=== PATIENT | male | born 1980 | race Caucasian/White ===

== ENCOUNTER → 2016-08-18 | Outpatient (CLI) | payer BC ==
[~2016-08-18] MED LIST: CYCL5TAB PO; LORA10CA2 PO; ONDA4TAB10 SL; OXYC-643 PO; PANT40TA PO; PRED10TA PO; PRLSR20 PO; PRLUDL5 PO
--- NOTE | 2016-08-18 14:30 | DIAGNOSTIC IMAGING REPORT ---
LEFT FOOT MIN 3 VIEWS ROUTINE CLINICAL HISTORY: PAIN IN L TOE M79.675, NAIL ABNORMALITY L60.9 COMPARISON: None. DISCUSSION: The bones and joint spaces appear intact. There is no evidence of fracture, dislocation or bony disease. There is no evidence for soft tissue swelling. IMPRESSION: Negative study. note is made of a small heel spur Electronically signed by: Elijah Pugh M.D. 08/18/2016 2:28 PM Dictated Date/Time: 08/18/2016 2:28 PM
== END | disposition home or self-care (01) ==
LOC: C.RAD 14:04
PROVIDERS: ATTEND Physician Assistant
DX: M79.675 Pain in left toe(s) (principal); L60.9 Nail disorder, unspecified; M77.32 Calcaneal spur, left foot

== ENCOUNTER 2016-10-08 10:43 | Emergency (ER) | payer BC ==
[~2016-10-08] VITALS: Ht 182.9 cm; Wt 121.4 kg
[~2016-10-08 10:43] MED LIST changes: -CYCL5TAB PO; -ONDA4TAB10 SL; -OXYC-643 PO; -PANT40TA PO; -PRED10TA PO; -PRLSR20 PO; -PRLUDL5 PO
[2016-10-08 10:50] VITALS: TEMP 36.5; Ht 182.9 cm; Wt 121.4 kg
[2016-10-08 11:16] VITALS: O2SAT 95
[2016-10-08] MEDS ORDERED: PRED10TA PO (11:20)
[2016-10-08] MEDS ORDERED: SODIUM CHLORIDE 0.9% 1000ML 1,000 ML IV STA (11:47)
[2016-10-08] MEDS ORDERED: METHYLPREDNISOLONE 125 MG VIAL IM STA (11:47)
[2016-10-08] MEDS ORDERED: ONDANSETRON INJ 2 MG/ML 2 ML VIAL IV STA (11:47)
[2016-10-08] MEDS ORDERED: RANITIDINE HCL 50 MG/100 ML D5W IV STA (11:47)
[2016-10-08] MEDS ORDERED: SODIUM CHLORIDE 0.9% 1000ML 1,000 ML IV ONE (11:47)
[2016-10-08] MEDS ORDERED: DiphenhydrAMINE HCL 50 MG/ML VIAL IV STA (11:47)
[2016-10-08] MEDS ORDERED: MoRPHine SULFATE 4 MG/ML 1 ML CARP\\VIAL IV STA (11:47)
[2016-10-08 12:06] LABS: HEMATOCRIT 51.3 % (42-52); MEAN CELL VOLUME 89.5 fL (80-100); MEAN CORPUSCULAR HEMOGLOBIN 33.2 pg (25-34); MEAN PLATELET VOLUME 11.5 fL (7.4-10.4); PLATELET COUNT 248 K/uL (130-400); RED BLOOD COUNT 5.73 M/uL (4.7-6.1); WHITE BLOOD COUNT 9.91 K/uL (4.8-10.8)
[2016-10-08 12:07] LABS: BUN/CREATININE RATIO 16.6 (10-20); CALCIUM 8.7 mg/dl (8.5-10.1); CREATININE 0.95 mg/dl (0.60-1.40); POTASSIUM 3.5 mmol/L (3.5-5.1)
--- NOTE | 2016-10-08 12:09 | DIAGNOSTIC IMAGING REPORT ---
CHEST ONE VIEW PORTABLE HISTORY: Atypical CHEST PAIN COMPARISON: Chest 06/25/2013. FINDINGS: The lungs are clear. Cardiac silhouette is normal in size. No pleural effusions. No pneumothorax. IMPRESSION: No acute process. Electronically signed by: Neymar Lara M.D. 10/08/2016 12:08 PM Dictated Date/Time: 10/08/2016 12:07 PM
[2016-10-08] MEDS ORDERED: METHYLPREDNISOLONE 125 MG VIAL IV STA (12:10)
[2016-10-08] MEDS ORDERED: NURSING VERBAL MED ORDER ONE (12:15)
--- NOTE | 2016-10-08 12:29 | EMERGENCY ROOM VISIT NOTE ---
History Report prepared by Ros: Anyi Oliveros Under the Supervision of: Dr. Edward Archer M.D. First contact with patient: 11:40 Chief Complaint: VOMITING Stated Complaint: HIVES, SEVERE VOMITING, RIB PAIN Nursing Triage Summary: pt reports started with hives over entire body on Wed. then started with NV on Sat. pt also reports rib pain RT vomitting pt currently on Rx for prednisone and claritin and zofran from PCP, did not take today DT vomitting History of Present Illness The patient is a 36 year old male who presents to the Emergency Room with complaints of intermittent vomiting since yesterday. The patient developed diffuse hives all over his body four days ago. He is complaining of itching that he states is especially bad on the bottoms of his feet. He had a similar episode of hives 2 years ago. He saw his PCP and they could not determine what was causing his rash. The hives resolved on their own. He has not had any issues since that time until this current episode. The patient is currently taking Claritin and prednisone for his hives as instructed by his PCP. He denies any new foods or exposures. He was recently taking Chantix and Wellbutrin , but states that he stopped both of those due to other side effects. He does report that he has been around a lot of pigeons and pigeon feces at work. Last night the patient developed nausea and vomiting. He states that his vomiting has been so severe that he might have broken a rib. He notes right rib pain that began after an episode of vomiting. He is also feeling very short of breath. The patient denies fevers, chills, and recent tick bites. He rates his current pain as a 10/10 in severity. Source of History: patient Onset: yesterday Position: abdomen Symptom Intensity: 10/10 Quality: other (vomiting) Timing: intermittent Associated Symptoms: + SOB, + nausea, + rash, No fevers, No chills Note: Pt notes right rib pain. Review of Systems See HPI for pertinent positives & negatives. A total of 10 systems reviewed and were otherwise negative. Past Medical & Surgical Medical Problems: (1) Hx of intravenous drug use in remission (2) Pilonidal cyst without mention of abscess Old medical records were reviewed. Nurse's notes were reviewed and I agree with. Family History Diabetes mellitus Social History Smoking Status: Current Every Day Smoker Alcohol Use: occasionally Drug Use: none Marital Status: single Housing Status: lives with family Occupation Status: employed Current/Historical Medications Scheduled Loratadine (Claritin), 10 MG PO BID Omeprazole (Prilosec), 20 MG PO DAILY Ondasetron Odt (Zofran Odt), 4 MG SL Q8 Prednisone (Prednisone), 10 MG PO DIRECTED Allergies Coded Allergies: Varenicline (Unverified Allergy, Unknown, SORE THROAT, 10/08/16) Uncoded Allergies: NONE (Allergy, Unknown, 09/04/04) Physical Exam Vital Signs Date Time Temp Pulse Resp B/P (MAP) Pulse Ox O2 Delivery O2 Flow Rate FiO2 10/08/16 14:50 89 19 118/86 97 10/08/16 12:37 83 16 139/79 98 Room Air 10/08/16 11:21 104 10/08/16 11:16 95 Room Air 10/08/16 10:50 36.5 90 20 129/88 97 Room Air Physical Exam General: Well developed well nourished non ill appearing young male, diffuse rash, complaining of pain along the right ribs, in no acute distress, no respiratory distress, breathing comfortably on room air. Normal speech HEENT: Normal cephalic atraumatic. Pupils are equal round and reactive to light. Extraocular movements are intact. Oropharynx is pink with moist mucous membranes. No swelling of the mouth lips or tongue. Speaking and swallowing without difficulty. Neck: Supple with a midline trachea. No meningeal signs or stiffness, no JVD or bruits. No Stridor. Chest: Clear to auscultation bilaterally. No wheezes or rhonchi. No increased work of breathing. Heart: regular rate and rhythm. Abdomen: Soft nontender, nondistended without rebound guarding or rigidity. Extremities: No cyanosis clubbing or edema. No calf tenderness or assymetry Spine/Back. Non tender to palpation. No CVA tenderness Skin: Diffuse rash that blanches Neurologic exam: Cranial nerves two through 12 are intact. Motor and sensation are intact and symmetrical throughout. Medical Decision & Procedures ER Provider Diagnostic Interpretation: Radiology results as stated below per my review and radiologist interpretation: CHEST ONE VIEW PORTABLE HISTORY: Atypical CHEST PAIN COMPARISON: Chest 06/25/2013. FINDINGS: The lungs are clear. Cardiac silhouette is normal in size. No pleural effusions. No pneumothorax. IMPRESSION: No acute process. Electronically signed by: Neymar Lara M.D. 10/08/2016 12:08 PM Dictated Date/Time: 10/08/2016 12:07 PM Laboratory Results 10/08/16 11:00 Red Blood Count 5.73, Mean Corpuscular Volume 89.5, Mean Corpuscular Hemoglobin 33.2, Mean Corpuscular Hemoglobin Concent 37.0, Mean Platelet Volume 11.5, Neutrophils (%) (Auto) 82.4, Lymphocytes (%) (Auto) 14.8, Monocytes (%) (Auto) 1.9, Eosinophils (%) (Auto) 0.1, Basophils (%) (Auto) 0.1, Neutrophils # (Auto) 8.16, Lymphocytes # (Auto) 1.47, Monocytes # (Auto) 0.19, Eosinophils # (Auto) 0.01, Basophils # (Auto) 0.01 10/08/16 11:00 Test 10/08/16 11:00 White Blood Count 9.91 K/uL (4.8-10.8) Red Blood Count 5.73 M/uL (4.7-6.1) Hemoglobin 19.0 g/dL (14.0-18.0) Hematocrit 51.3 % (42-52) Mean Corpuscular Volume 89.5 fL (80-100) Mean Corpuscular Hemoglobin 33.2 pg (25-34) Mean Corpuscular Hemoglobin Concent 37.0 g/dl (32-36) Platelet Count 248 K/uL (130-400) Mean Platelet Volume 11.5 fL (7.4-10.4) Neutrophils (%) (Auto) 82.4 % Lymphocytes (%) (Auto) 14.8 % Monocytes (%) (Auto) 1.9 % Eosinophils (%) (Auto) 0.1 % Basophils (%) (Auto) 0.1 % Neutrophils # (Auto) 8.16 K/uL (1.4-6.5) Lymphocytes # (Auto) 1.47 K/uL (1.2-3.4) Monocytes # (Auto) 0.19 K/uL (0.11-0.59) Eosinophils # (Auto) 0.01 K/uL (0-0.5) Basophils # (Auto) 0.01 K/uL (0-0.2) RDW Standard Deviation 40.8 fL (36.4-46.3) RDW Coefficient of Variation 12.4 % (11.5-14.5) Immature Granulocyte % (Auto) 0.7 % Immature Granulocyte # (Auto) 0.07 K/uL (0.00-0.02) Anion Gap 8.0 mmol/L (3-11) Est Creatinine Clear Calc Drug Dose 147.4 ml/min Estimated GFR () 120.6 Estimated GFR (Non- 104.0 BUN/Creatinine Ratio 16.6 (10-20) Calcium Level 8.7 mg/dl (8.5-10.1) Total Bilirubin 2.1 mg/dl (0.2-1) Direct Bilirubin 0.9 mg/dl (0-0.2) Aspartate Amino Transf (AST/SGOT) 18 U/L (15-37) Alanine Aminotransferase (ALT/SGPT) 34 U/L (12-78) Alkaline Phosphatase 43 U/L (45-117) Total Protein 7.0 gm/dl (6.4-8.2) Albumin 3.1 gm/dl (3.4-5.0) Lipase 37 U/L (73-393) Lyme Disease IgG Antibody NEG (NEG) Lyme Disease IgM Antibody NEG (NEG) Laboratory studies as stated above per my review. Medications Administered Medications (Trade) Dose Ordered Sig/Kandace Route Start Time Stop Time Status Last Admin Dose Admin Ondansetron HCl (Zofran Inj) 4 mg NOW STAT IV 10/08/16 11:47 10/08/16 11:51 DC 10/08/16 11:55 4 MG Morphine Sulfate (MoRPHine SULFATE INJ) 4 mg NOW STAT IV 10/08/16 11:47 10/08/16 11:51 DC 10/08/16 11:56 4 MG Sodium Chloride 1,000 ml @ 999 mls/hr Q1H1M STAT IV 10/08/16 11:47 10/08/16 12:47 DC 10/08/16 11:55 999 MLS/HR Sodium Chloride 1,000 ml @ 150 mls/hr Q6H40M ONCE IV 10/08/16 11:47 10/08/16 18:26 10/08/16 13:01 150 MLS/HR Ranitidine HCl (zANTac IV) 50 mg NOW STAT IV 10/08/16 11:47 10/08/16 11:51 DC 10/08/16 11:59 50 MG Diphenhydramine HCl (Benadryl Inj) 25 mg NOW STAT IV 10/08/16 11:47 10/08/16 11:51 DC 10/08/16 11:58 25 MG ED Course 1140: Past medical records reviewed. The patient was evaluated in room A3, and a complete history and physical examination were performed. 1147: Benadryl 25 mg IV, Zantac 50 mg IV, NSS 1000 ml @ 150 mls/hr IV, NSS 1000 ml @ 999 mls/hr IV, Morphine sulfate 4 mg IV, Zofran 4 mg IV 1210: Solu-Medrol 125 mg IV 1417: I reassessed the patient at this time. He is feeling better and resting comfortably. He has had significant improvement of his symptoms and his rash is almost completely gone. I discussed the results and treatment plan with the patient. I answered all pertaining questions that he had. He expressed understanding and verbalized agreement. The patient will be discharged home. Medical Decision Differential diagnoses includes hives, allergic reaction, urticaria, viral illness, pneumothorax, rib fracture. This patient comes in as described above. He was placed in room A3. He is here for treatment and evaluation of urticarial type rash. He's also had vomiting and has left rib pain from vomiting. He has pain with breathing but no shortness of breath. he is non-hypoxemic. he has no evidence of mucous membrane involvement or airway compromise. this been going on for several days. I did review his old records and he had a similar episode that of persistent hives a couple years ago but has been okay in between. IV access established hydrated with IV normal saline and received almost 2 L normal saline during his visit. he also received Zofran 4 mg IV morphine 4 mg IV for pain and nausea management which helped greatly in regards to his hives/urticaria. he received IV solumedrol 125 mg, Benadryl 25 mg IV, and Zantac 50 mg IV. this worked well and he felt significant better and the hives have significantly faded. He does feel up to go home. He should continue uses prednisone. He should continue to use antihistamine such as Claritin or Benadryl . He was given a prescription for Zofran if needed for nausea. He can use [id number] medications and needed for pain but do not exceed the [id number] recommended dosages. He should return if: Worsening of symptoms, shortness of breath, fever or chills, any new problems or concerns. His urticaria at this point is idiopathic and may be related to viral illness he may need further workup as an outpatient. He should follow his regular doctor next couple days for recheck Medication Reconcilliation Current Medication List: was personally reviewed by me Blood Pressure Screening Patient's blood pressure: Normal blood pressure Impression Primary Impression: Urticaria Additional Impression: Rib pain on right side Scribe Attestation The scribe's documentation has been prepared under my direction and personally reviewed by me in its entirety. I confirm that the note above accurately reflects all work, treatment, procedures, and medical decision making performed by me. Departure Information Dispostion Home / Self-Care Prescriptions Ondasetron Odt (ZOFRAN ODT) 4 Mg Tab 4 MG SL Q8 for Nausea, #14 TAB Prov: Edward Archer M.D. 10/08/16 Referrals Mansi Elliott PA-C (PCP) Forms HOME CARE DOCUMENTATION FORM, IMPORTANT VISIT INFORMATION Patient Instructions My [facility] Additional Instructions Rest Drink plenty of fluids. Use Zofran 4 mg under the tongue every 8 hours if needed for nausea or vomiting Continue to use your prednisone and Claritin or Benadryl Return if: Worsening of symptoms, shortness of breath, increasing pain, fever chills, any new problems or concerns. For pain, may use either small dose of ibuprofen and or acetaminophen/Tylenol but do not exceed the [id number] recommended dosages. Problem Qualifiers
[2016-10-08 12:32] LABS: LYME DISEASE AB IGG NEG (NEG); LYME DISEASE AB IGM NEG (NEG)
[2016-10-08 13:06] LABS: BASO % 0.1 %; BASO ABS # 0.01 K/uL (0-0.2); COMPLETE YES; EOS % 0.1 %; IG% 0.7 %; LYMPH % 14.8 %; LYMPH ABS # 1.47 K/uL (1.2-3.4); MONO % 1.9 %; NEUT % 82.4 %
[2016-10-08] MEDS ORDERED: ONDA4TAB10 SL (14:24)
[2016-10-08 14:50] VITALS: BP 118/86; PULSE 89; O2SAT 97
[2016-10-09] MEDS ORDERED: PRLSR20 PO (00:40)
== END 2016-10-08 14:50 | disposition home or self-care (01) ==
LOC: C.EDB 10:44 → C.EDA 14:50
DX: R11.10 Vomiting, unspecified (principal); L50.9 Urticaria, unspecified; R07.81 Pleurodynia; F17.210 Nicotine dependence, cigarettes, uncomplicated

== ENCOUNTER 2016-10-09 21:48 | Emergency (ER) | payer BC ==
[~2016-10-09] VITALS: Ht 182.9 cm; Wt 118.2 kg
[~2016-10-09 21:48] MED LIST changes: +ONDA4TAB10 SL; +PRED10TA PO; +PRLSR20 PO
[2016-10-09 21:51] VITALS: TEMP 36.8; Ht 182.9 cm; Wt 118.2 kg
[2016-10-09] MEDS ORDERED: ONDANSETRON INJ 2 MG/ML 2 ML VIAL IV STA (22:12)
[2016-10-09] MEDS ORDERED: METHYLPREDNISOLONE 125 MG VIAL IV STA (22:12)
[2016-10-09] MEDS ORDERED: SODIUM CHLORIDE 0.9% 1000ML 1,000 ML IV ONE (22:15)
[2016-10-09] MEDS ORDERED: ALBUT/IPRATROP 3MG/0.5MG NEB 3 ML VIAL INH ONE (22:15)
[2016-10-09 22:46] LABS: BASO % 0.1 %; BASO ABS # 0.01 K/uL (0-0.2); COMPLETE YES; EOS % 0.1 %; HEMATOCRIT 43.4 % (42-52); IG% 0.3 %; LYMPH % 14.3 %; LYMPH ABS # 2.22 K/uL (1.2-3.4); MEAN CELL VOLUME 90.2 fL (80-100); MEAN CORPUSCULAR HEMOGLOBIN 32.8 pg (25-34); MEAN CORPUSCULAR HGB CONC 36.4 g/dl (32-36); MEAN PLATELET VOLUME 10.5 fL (7.4-10.4); MONO % 3.1 %; NEUT % 82.1 %; PLATELET COUNT 259 K/uL (130-400); RED BLOOD COUNT 4.81 M/uL (4.7-6.1); WHITE BLOOD COUNT 15.57 K/uL (4.8-10.8)
[2016-10-09 22:54] LABS: ALB/GLOB RATIO 0.8 (0.9-2); BUN/CREATININE RATIO 16.4 (10-20); CALCIUM 8.8 mg/dl (8.5-10.1); CREATININE 0.73 mg/dl (0.60-1.40); POTASSIUM 3.2 mmol/L (3.5-5.1)
[2016-10-09 22:56] LABS: POINT OF CARE TROPONIN I < 0.030 ng/ml (0-0.045)
[2016-10-09] MEDS ORDERED: OPTIRAY 320 IV PRN (23:00)
[2016-10-09 23:55] LABS: LYME DISEASE AB IGG NEG (NEG); LYME DISEASE AB IGM NEG (NEG)
[2016-10-10] MEDS ORDERED: PRLUDL5 PO (00:20)
[2016-10-10] MEDS ORDERED: PANT40TA PO (00:20)
[2016-10-10 00:49] VITALS: BP 130/85; PULSE 67; O2SAT 98
--- NOTE | 2016-10-10 03:08 | EMERGENCY ROOM VISIT NOTE ---
History First contact with patient: 22:00 Chief Complaint: OTHER COMPLAINT Stated Complaint: RASH, TIGHTNESS IN THROAT, SOB History of Present Illness The patient is a 36 year old male who presents to the Emergency Room for evaluation of multiple complaints. The patient was seen yesterday at the facility for allergic reaction and rash. He was provided prednisone, which she states did help the itching and redness of his body. The patient states that he took a dose this morning, and shortly afterwards began having pain and tightness in his chest. He describes it like a burning sensation. He has had coughing and wheezing worsening throughout the day, and he states this seems to worsen the tightness in his chest. The patient has not had fever or chills. No new medications other than the prednisone. He recently discontinued his antidepressants as he felt this was likely causing his rash that initially brought him in. The patient does have some anxiety at baseline. He rates his discomfort a 5/10. Review of Systems More than 10 systems were reviewed and otherwise negative with the exception of history of present illness. Past Medical/Surgical History Medical Problems: (1) Hx of intravenous drug use in remission (2) Pilonidal cyst without mention of abscess Family History Diabetes mellitus Social History Smoking Status: Current Every Day Smoker Alcohol Use: occasionally Drug Use: none Marital Status: single Housing Status: lives with family Occupation Status: employed Current/Historical Medications Scheduled Loratadine (Claritin), 10 MG PO BID Ondasetron Odt (Zofran Odt), 4 MG SL Q8 Pantoprazole (Protonix), 40 MG PO DAILY Prednisolone (Prelone 15MG/5ML), 15 ML PO DAILY Prednisone (Prednisone), 10 MG PO DIRECTED Scheduled PRN Omeprazole (Prilosec), 20 MG PO DAILY PRN for Dyspepsia Physical Exam Vital Signs Date Time Temp Pulse Resp B/P (MAP) Pulse Ox O2 Delivery O2 Flow Rate FiO2 10/10/16 00:49 67 20 130/85 98 10/09/16 23:23 84 18 129/77 98 Room Air 10/09/16 22:52 82 20 123/80 98 Room Air 10/09/16 21:51 36.8 88 16 139/83 98 Room Air Pain Rating (0-10): 0 Physical Exam VITALS: Vitals are noted on the nurse's note and reviewed by myself. Vital signs stable. GENERAL: Well-developed, well-nourished, white male, who is mildly anxious but nontoxic MOUTH: Mucous membranes moist. Tonsils are not enlarged. Pharynx without erythema, blood, or exudate. Uvula midline. Airway patent. NECK: Supple without nuchal rigidity. No lymphadenopathy. No thyromegaly. Cervical spine is nontender. HEART: Regular rate and rhythm without murmurs gallops or rubs. LUNGS: Overall clear with scant left-sided wheezing ABDOMEN: Positive normal bowel sounds x 4. Soft, nontender, without masses or organomegaly. No guarding or rebound tenderness. MUSCULOSKELETAL: No muscle atrophy, erythema, or edema noted. Full range of motion without joint tenderness in all extremities. Negative Homans sign bilateral NEURO: Patient was alert and oriented to person place and time. CN II through XII grossly intact. SKIN: The skin was with faint urticarial rash best appreciated on the lower extremities Medical Decision & Procedures ER Provider Diagnostic Interpretation: Preliminary Findings Only See Final Report For Complete Findings CTA CHEST: No pulmonary embolus identified. Tiny nonspecific 4 mm nodule in the right middle lobe. According to Fleischner society recommendations, if patient is low risk, no further follow-up is necessary. If patient is high risk, follow-up CT could be performed at 12 months. Minimal focal densities in the anterior upper lobes may represent focal atelectasis. Possible small amount of density in the gallbladder may represent stones and/or sludge. No CT evidence of acute cholecystitis. Laboratory Results 10/09/16 22:15 Red Blood Count 4.81, Mean Corpuscular Volume 90.2, Mean Corpuscular Hemoglobin 32.8, Mean Corpuscular Hemoglobin Concent 36.4, Mean Platelet Volume 10.5, Neutrophils (%) (Auto) 82.1, Lymphocytes (%) (Auto) 14.3, Monocytes (%) (Auto) 3.1, Eosinophils (%) (Auto) 0.1, Basophils (%) (Auto) 0.1, Neutrophils # (Auto) 12.81, Lymphocytes # (Auto) 2.22, Monocytes # (Auto) 0.48, Eosinophils # (Auto) 0.01, Basophils # (Auto) 0.01 10/09/16 22:15 Test 10/09/16 22:15 10/09/16 22:37 White Blood Count 15.57 K/uL (4.8-10.8) Red Blood Count 4.81 M/uL (4.7-6.1) Hemoglobin 15.8 g/dL (14.0-18.0) Hematocrit 43.4 % (42-52) Mean Corpuscular Volume 90.2 fL (80-100) Mean Corpuscular Hemoglobin 32.8 pg (25-34) Mean Corpuscular Hemoglobin Concent 36.4 g/dl (32-36) Platelet Count 259 K/uL (130-400) Mean Platelet Volume 10.5 fL (7.4-10.4) Neutrophils (%) (Auto) 82.1 % Lymphocytes (%) (Auto) 14.3 % Monocytes (%) (Auto) 3.1 % Eosinophils (%) (Auto) 0.1 % Basophils (%) (Auto) 0.1 % Neutrophils # (Auto) 12.81 K/uL (1.4-6.5) Lymphocytes # (Auto) 2.22 K/uL (1.2-3.4) Monocytes # (Auto) 0.48 K/uL (0.11-0.59) Eosinophils # (Auto) 0.01 K/uL (0-0.5) Basophils # (Auto) 0.01 K/uL (0-0.2) RDW Standard Deviation 40.8 fL (36.4-46.3) RDW Coefficient of Variation 12.3 % (11.5-14.5) Immature Granulocyte % (Auto) 0.3 % Immature Granulocyte # (Auto) 0.04 K/uL (0.00-0.02) Anion Gap 5.0 mmol/L (3-11) Est Creatinine Clear Calc Drug Dose 189.3 ml/min Estimated GFR () 140.3 Estimated GFR (Non- 121.0 BUN/Creatinine Ratio 16.4 (10-20) Calcium Level 8.8 mg/dl (8.5-10.1) Total Bilirubin 0.4 mg/dl (0.2-1) Aspartate Amino Transf (AST/SGOT) 10 U/L (15-37) Alanine Aminotransferase (ALT/SGPT) 25 U/L (12-78) Alkaline Phosphatase 38 U/L (45-117) Total Protein 6.7 gm/dl (6.4-8.2) Albumin 2.9 gm/dl (3.4-5.0) Globulin 3.8 gm/dl (2.5-4.0) Albumin/Globulin Ratio 0.8 (0.9-2) Lyme Disease IgG Antibody NEG (NEG) Lyme Disease IgM Antibody NEG (NEG) Bedside D-Dimer > 450 ng/mlFEU (0-450) Bedside Troponin I < 0.030 ng/ml (0-0.045) Medications Administered Medications (Trade) Dose Ordered Sig/Kandace Route Start Time Stop Time Status Last Admin Dose Admin Sodium Chloride 1,000 ml @ 999 mls/hr Q1H1M ONCE IV 10/09/16 22:15 10/09/16 23:15 DC 10/09/16 22:30 999 MLS/HR Methylprednisolone Sodium Succinate (Solu-Medrol IV) 125 mg NOW STAT IV 10/09/16 22:12 10/09/16 22:14 DC 10/09/16 22:30 125 MG Ondansetron HCl (Zofran Inj) 4 mg NOW STAT IV 10/09/16 22:12 10/09/16 22:14 DC 10/09/16 22:30 4 MG Albuterol/ Ipratropium (Duoneb) 3 ml NOW ONCE INH 10/09/16 22:15 10/09/16 22:16 DC 10/09/16 22:30 3 ML ECG Change: Normal sinus rhythm with sinus arrhythmia @72 bpm Normal ECG No previous ECGs available ED Course Physical exam and history were performed. Nursing notes, EMR, and Medication List were personally reviewed. Patient appears to have chest discomfort after taking prednisone earlier today. On exam he does not appear toxic but does have some very scant wheezing in the left side lung guadalupe. IV access was established and labs were obtained. The patient was hydrated with normal saline. I did elect to give him IV Solu- Medrol for his symptoms as well as a DuoNeb treatment. Chest x-ray was performed. X-ray was normal sinus with sinus arrhythmia at 72 bpm without ischemia. The patient was placed on a clinical data abstractor. The patient's blood work is as above and was reviewed. He does have a white blood cell count of 15,000, however this is likely due to his Solu-Medrol in the ER yesterday as well as taking prednisone at home. He does not have a significant anemia or gross electrolyte imbalance. His troponin 1 is negative. D-dimer was elevated and CT scan was ordered. The CT scan does not show evidence of acute pulmonary embolism or other acute intrathoracic process. He does have an incidental pulmonary nodule, and is a smoker. The patient will be referred to his PCP regarding this. His Lyme screen is negative. The patient was reevaluated multiple times with her symptoms his stay. He had significant improvement of his breathing as well as his itching after the above interventions. His chest discomfort also improved. The patient symptoms are likely related to a medication as or possibly stress/anxiety. I discussed the case with my attending, and overall we feel the patient is stable for discharge home provided he has close follow-up by his PCP. The patient was thoroughly invited back to the ER with any new, worsening, or concerning symptoms. I will attempt liquid Prelone for the patient for his symptoms, as perhaps this will lessen the esophagitis. We will also provide him a course of Protonix. The patient was pleased with this and rated his discomfort a 2/10 at the time of departure. The chart was completed utilizing [employer] Speech Voice Recognition Software. Grammatical errors, random word insertions, pronoun errors, and incomplete sentences are an occasional consequence of this system due to software limitations, ambient noise, and hardware issues. Any formal questions or concerns about the content, text, or information contained within the body of this dictation should be directly addressed to the provider for clarification. . Medical Decision Differential diagnosis includes, but is not limited to: Myocardial infarction, dysrhythmia, pericarditis, pneumothorax, aortic aneurysm/dissection, DVT/PE, anxiety, GERD, PUD, electrolyte imbalance, thyroid disorder, pneumonia, bronchitis, pancreatitis, and others Impression Primary Impression: Cough Additional Impressions: Allergic reaction Incidental pulmonary nodule Departure Information Dispostion Home / Self-Care Condition GOOD Prescriptions Prednisolone (PRELONE 15MG/5ML) 15 Mg/5 Ml Syrp 15 ML PO DAILY for 3 Days, #45 ML Prov: Vineet Carrizales PA-C 10/10/16 Pantoprazole (Protonix) 40 Mg Tab 40 MG PO DAILY for 14 Days, #14 TAB Prov: Vineet Carrizales PA-C 10/10/16 Forms HOME CARE DOCUMENTATION FORM, Work Instructions, Additional Instructions: Patient was seen today in the emergency department for medical care. Return to work on 10/12/2016. Please excuse. IMPORTANT VISIT INFORMATION Patient Instructions My [facility] Additional Instructions You were seen and evaluated today on an emergency basis only. This is not a substitute for, or an effort to provide, complete comprehensive medical care. It is not possible to recognize and treat all injuries or illnesses in a single emergency department visit. For this reason it is recommended that you followup with your primary care physician this week for ongoing care and evaluation. Take Protonix 40 mg daily for the next 2 weeks. Take Prelone 15 ML's daily for the next 3 days. You have a 4 mm nodule in the right middle lobe on CT scan of your chest. This is nonspecific and the recommendation is that you have a follow-up CT in 12 months. This can be ordered by your primary care physician. You are welcome to return to the emergency department anytime with new, worsening, or concerning symptoms. Work Instructions Additional Work Instructions: Patient was seen today in the emergency department for medical care. Return to work on 10/12/2016. Please excuse. Problem Qualifiers
--- NOTE | 2016-10-10 06:43 | DIAGNOSTIC IMAGING REPORT ---
CT ANGIOGRAM OF THE CHEST CLINICAL HISTORY: Cough, shortness of breath, elevated d-dimer. COMPARISON STUDY: Chest x-ray dated 10/08/2016 TECHNIQUE: Following the IV administration of 73 mL of Optiray-320, CT angiogram of the thorax was performed from the thoracic inlet to the lung bases utilizing the pulmonary embolus protocol. Images are reviewed in the axial, sagittal, and coronal planes. IV contrast was administered without complication. MIP imaging was performed. A dose lowering technique was utilized adhering to the principles of ALARA. CT DOSE: 629.72 mGy.cm FINDINGS: No pathologically enlarged axillary mediastinal or hilar lymph nodes were visualized. There was no evidence of thoracic aortic dilatation. There were no pulmonary artery filling defects to indicate acute pulmonary embolism. No pleural effusions are visualized. There is a 7 mm pleural-based groundglass opacity within the left upper lobe, as visualized in image #187/278. There is a wispy groundglass opacity within the left lower lobe measuring 18 mm as visualized in image #1 6/278. There is a 4 mm right middle lobe pulmonary nodule as visualized in image #132/278.. There is an 8 mm mixed groundglass and solid left upper lobe pulmonary nodule is visualized in image #202/278. IMPRESSION: 1. Somewhat suboptimal pulmonary artery opacification, but no pulmonary emboli identified 2. No evidence of pathologic adenopathy 3. 4 mm right middle lobe pulmonary nodule. Subtle nonspecific groundglass opacities within the left lung, possibly atelectatic. Please refer to below summary of Fleischner criteria recommendations for follow-up of incidental CT nodules (Beba Cedeno, Guidelines for management of small pulmonary nodules detected on CT scans: A statement from the Fleischner Society, Radiology 237: [phone].) SOLID NODULES Solitary nodule size: <6 mm * low risk patients: no follow-up needed * high risk patients: optional CT at 12 months Solitary nodule size: 6-8 mm * low risk patients: follow-up at 6-12 months, then consider further follow-up at 18-24 months * high risk patients: initial follow-up CT at 6-12 months and then at 18-24 months if no change Solitary nodule size: >8 mm * either low or high risk patients - consider follow-up CT at 3 months, and/or CT-PET, and/or biopsy Multiple nodules size: <6 mm * low risk patients: no routine follow-up * high risk patients: optional CT at 12 months Multiple nodules size: 6-8 mm * low risk patients: follow-up at 3-6 months, then consider further follow-up at 18-24 months * high risk patients: follow-up at 3-6 months, then at 18-24 months if no change Multiple nodules size: >8 mm * low risk patients: follow-up at 3-6 months, then consider further follow-up at 18-24 months * high risk patients: follow-up at 3-6 months, then at 18-24 months if no change Note: newly detected indeterminate nodule in persons 35 years of age or older. * low risk patients: minimal or absent history of smoking and/or other known risk factors * high risk patients: history of smoking or of other known risk factors (e.g. first degree relative with lung cancer, or exposure to asbestos, radon, uranium) * if a nodule up to 8 mm is partly solid or is ground glass further follow-up is required after 24 months to exclude possible slow growing adenocarcinoma (NELLA) SUBSOLID NODULES Solitary pure ground-glass nodule * nodule size <6 mm - no CT follow-up required * nodule size >=6 mm - follow-up CT at 6-12 months, then every 2 years until 5 years Solitary part-solid nodule * nodule size <6 mm - no CT follow-up required * nodule size >=6 mm - follow-up CT at 3-6 months. If unchanged, and solid component remains <6 mm, then annual follow-up for 5 years Multiple subsolid nodules * nodule size <6 mm - follow-up CT at 3-6 months, consider further follow-up at 2 and 4 years if stable * nodule size >=6 mm - follow-up CT at 3-6 months, subsequent management based on the most suspicious nodule(s) Electronically signed by: Elvin Hartman M.D. 10/10/2016 6:42 AM Dictated Date/Time: 10/10/2016 6:37 AM
--- NOTE | 2016-10-10 07:23 | DIAGNOSTIC IMAGING REPORT ---
CHEST 2 VIEWS ROUTINE HISTORY: Cough. Wheezing. SOB COMPARISON: Chest 10/08/2016. FINDINGS: The lungs are clear. Cardiac silhouette is normal in size. No pleural effusions. No pneumothorax. IMPRESSION: No acute process. Electronically signed by: Neymar Lara M.D. 10/10/2016 7:21 AM Dictated Date/Time: 10/10/2016 7:21 AM
== END 2016-10-10 00:51 | disposition home or self-care (01) ==
LOC: C.EDB 21:49
DX: T78.40XA Allergy, unspecified, initial encounter (principal); X58.XXXA Exposure to other specified factors, initial encounter; R91.1 Solitary pulmonary nodule; R05 Cough; F17.200 Nicotine dependence, unspecified, uncomplicated; Z79.899 Other long term (current) drug therapy; Z83.3 Family history of diabetes mellitus

== ENCOUNTER 2016-10-11 06:06 | Observation (INO) | payer BC ==
[2016-10-11] VITALS (7 sets, daily range): BP systolic 126–131; BP diastolic 71–81; PULSE 68–72; TEMP 36.7–36.8; O2SAT 91–99; Ht 182.9 cm; Wt 121.5 kg
[~2016-10-11] VITALS: Ht 182.9 cm; Wt 121.5 kg
[~2016-10-11 06:06] MED LIST changes: +PANT40TA PO; +PRLUDL5 PO
[2016-10-11] MEDS ORDERED: ONDANSETRON INJ 2 MG/ML 2 ML VIAL IV STA (06:26)
[2016-10-11] MEDS ORDERED: SODIUM CHLORIDE 0.9% 1000ML 1,000 ML IV ONE (06:30)
[2016-10-11] MEDS ORDERED: GI COCKTAIL PO ONE (06:30)
[2016-10-11] MEDS ORDERED: LIDOCAINE HCL 2% VISC SOLN 20 ML UDC ONE (06:34)
[2016-10-11] MEDS ORDERED: ALUMINUM/MAGNESIUM SUSP 30 ML UDC ONE (06:34)
[2016-10-11] MEDS ORDERED: RANITIDINE HCL 50 MG/100 ML D5W IV STA (06:48)
[2016-10-11 06:54] LABS: BASO % 0.1 %; BASO ABS # 0.01 K/uL (0-0.2); COMPLETE YES; EOS % 0.1 %; HEMATOCRIT 42.4 % (42-52); IG% 0.7 %; LYMPH % 22.9 %; MEAN CELL VOLUME 90.4 fL (80-100); MEAN CORPUSCULAR HEMOGLOBIN 31.8 pg (25-34); MEAN CORPUSCULAR HGB CONC 35.1 g/dl (32-36); MEAN PLATELET VOLUME 9.8 fL (7.4-10.4); MONO % 8.1 %; NEUT % 68.1 %; PLATELET COUNT 274 K/uL (130-400); RED BLOOD COUNT 4.69 M/uL (4.7-6.1); WHITE BLOOD COUNT 14.39 K/uL (4.8-10.8)
[2016-10-11] MEDS ORDERED: PANTOprazole INJ 40 MG in SYRINGE 0 ML IV ONE (07:00)
--- NOTE | 2016-10-11 07:09 | EMERGENCY ROOM VISIT NOTE ---
History First contact with patient: 06:17 Chief Complaint: NAUSEA Stated Complaint: NAUSEA,WEAK,CAN'T SWALLOW Nursing Triage Summary: pt in B10 with family member at bedside. pt states "I've been tryin to throw up since 2:30am. I just can't get nothin up. It's like I can't even describe the cramps i'm having. I can't swallow." pt c/o abd cramping and nausea, states "I can't throw up." pt leaning over bed with bucket from home, spitting. pt alert and oriented x4. breathing WNL. History of Present Illness The patient is a 36 year old male who presents to the Emergency Room with complaints of epigastric abdominal pain and nausea worsening over the past 4 hours. The patient has been seen 3 times in the past 4 days in the emergency department. He was initially seen for a rash and started on prednisone. He felt the rash was from his antidepressant medications, which she has discontinued. The patient returned one day later with chest pain and epigastric abdominal pain where EKG and troponin were negative. CT scan for PE was also negative. The patient was transitioned to liquid prednisone at that time, out of concern for possible esophagitis secondary to the steroid use. The patient states that he felt well yesterday morning and throughout the day. Around 2:30 AM he started having abdominal cramping and discomfort. He feels the need to vomit, but states that he has been dry heaving. He does not have lower abdominal pain. No fevers or chills. He rates his discomfort a 10/10. It does not radiate. Review of Systems More than 10 systems were reviewed and otherwise negative with the exception of history of present illness. Past Medical/Surgical History Medical Problems: (1) Hx of intravenous drug use in remission (2) Pilonidal cyst without mention of abscess Family History Diabetes mellitus Social History Smoking Status: Current Every Day Smoker Alcohol Use: occasionally Drug Use: none Marital Status: single Housing Status: lives with family Occupation Status: employed Current/Historical Medications Scheduled Ondasetron Odt (Zofran Odt), 4 MG SL Q8 Pantoprazole (Protonix), 40 MG PO DAILY Prednisone (Prednisone), 10 MG PO DIRECTED Physical Exam Vital Signs Date Time Temp Pulse Resp B/P (MAP) Pulse Ox O2 Delivery O2 Flow Rate FiO2 10/11/16 06:10 36.7 88 24 137/80 95 Room Air Physical Exam VITALS: Vitals are noted on the nurse's note and reviewed by myself. Vital signs stable. GENERAL: Well-developed, well-nourished, white male who is in mild discomfort secondary to his stated complaint. MOUTH: Mucous membranes moist. Tonsils are not enlarged. Pharynx without erythema, blood, or exudate. Uvula midline. Airway patent. NECK: Supple without nuchal rigidity. No lymphadenopathy. No thyromegaly. Cervical spine is nontender. HEART: Regular rate and rhythm without murmurs gallops or rubs. LUNGS: Clear to auscultation bilaterally without wheezes, rales or rhonchi. No retractions or accessory muscle use. ABDOMEN: Positive normal bowel sounds x 4. Soft with epigastric and right upper quadrant tenderness. MUSCULOSKELETAL: No muscle atrophy, erythema, or edema noted. Full range of motion without joint tenderness in all extremities. Medical Decision & Procedures Laboratory Results Test 10/11/16 06:40 Medications Administered Medications (Trade) Dose Ordered Sig/Kandace Route Start Time Stop Time Status Last Admin Dose Admin Sodium Chloride 1,000 ml @ 999 mls/hr Q1H1M ONCE IV 10/11/16 06:30 10/11/16 07:30 10/11/16 06:40 999 MLS/HR Ondansetron HCl (Zofran Inj) 4 mg NOW STAT IV 10/11/16 06:26 10/11/16 06:28 DC 10/11/16 06:39 4 MG Al Hydroxide/Mg Hydroxide (Maalox Susp) 30 ml STK-MED ONCE .ROUTE 10/11/16 06:34 10/11/16 06:35 DC 10/11/16 06:36 30 ML Lidocaine HCl (Viscous Lidocaine 2% Soln) 20 ml STK-MED ONCE .ROUTE 10/11/16 06:34 10/11/16 06:35 DC 10/11/16 06:37 20 ML ED Course Physical exam and history were performed. Nursing notes, EMR, and Medication List were personally reviewed. Patient appears to have nausea and epigastric abdominal pain for the past 4 hours. The patient has been seen several times in the past few days with his complaint. IV access was established and labs were obtained. The patient was given a GI cocktail here in the department, however he vomited this almost immediately. The patient was given IV fluids, IV Zofran, IV Protonix, and IV Zantac. The patient has not yet had a sonogram of his gallbladder, as this can certainly be a cause of his symptoms. His symptoms certainly could be the result of esophagitis secondary to steroid use. He may have another etiology for his symptoms and his testing is pending at the time of shift change. The case was discussed with Iris Belcher PA-C who will assume care. Please see their dictation for further patient course, plan, and disposition. The chart was completed utilizing voc[employer] Speech Voice Recognition Software. Grammatical errors, random word insertions, pronoun errors, and incomplete sentences are an occasional consequence of this system due to software limitations, ambient noise, and hardware issues. Any formal questions or concerns about the content, text, or information contained within the body of this dictation should be directly addressed to the provider for clarification. . Medical Decision Differential diagnosis: Etiologies such as appendicitis, diverticulitis, PUD, biliary pathology, UTI, pancreatitis, obstruction, mesenteric ischemia, aortic pathology, infections, inflammatory bowel disease, renal colic, as well as others were entertained. Impression Primary Impression: Epigastric abdominal pain Additional Impression: Nausea and vomiting Departure Information Referrals Mansi Elliott PA-C (PCP) Patient Instructions My [facility] Problem Qualifiers
[2016-10-11 07:11] LABS: BUN/CREATININE RATIO 19.1 (10-20); CALCIUM 8.7 mg/dl (8.5-10.1); CREATININE 0.69 mg/dl (0.60-1.40)
[2016-10-11 07:14] LABS: ALB/GLOB RATIO 0.8 (0.9-2)
[2016-10-11] MEDS ORDERED: OPTIRAY 320 IV PRN (07:45)
[2016-10-11] MEDS ORDERED: MoRPHine SULFATE 4 MG/ML 1 ML CARP\\VIAL IV STA ×2 (07:47→09:07)
--- NOTE | 2016-10-11 07:48 | DIAGNOSTIC IMAGING REPORT ---
GALLBLADDER-ABD LIMITED CLINICAL HISTORY: epigastric abd pain pain. Nausea. TECHNIQUE: Ultrasound COMPARISON STUDY: 10/27/2014 FINDINGS: Trace gallbladder sludge. No shadowing gallstones. Normal gallbladder wall. Common bile duct 3 mm. Liver pancreas and right kidney are unremarkable. No evidence for right renal hydronephrosis. IMPRESSION: Trace gallbladder sludge. Normal caliber bile ducts. Otherwise normal exam. The above report was generated using voice recognition software. It may contain grammatical, syntax or spelling errors. Electronically signed by: Elijah Pugh M.D. 10/11/2016 7:46 AM Dictated Date/Time: 10/11/2016 7:45 AM
--- NOTE | 2016-10-11 08:15 | DIAGNOSTIC IMAGING REPORT ---
CT OF THE ABDOMEN AND PELVIS WITH CONTRAST CLINICAL HISTORY: Abdominal pain and nausea. COMPARISON STUDY: Renal ultrasound is October 27, 2014 and right upper quadrant ultrasound performed earlier today. TECHNIQUE: Following IV administration of 92 mL of Optiray-320, axial images of the abdomen and pelvis were obtained from the lung bases to the proximal femurs. Images were reviewed in the axial, sagittal, and coronal planes. IV contrast was administered without complication. A dose lowering technique was utilized adhering to the principles of ALARA. CT DOSE: 1123.51 mGy.cm FINDINGS: The lung bases are clear. The liver, spleen, adrenal glands and pancreas are normal. A 3 mm calculus within the lower pole of the right kidney is noted. There is a punctate calculus within lower pole of the left kidney. There are no ureteral calculi and there is no hydronephrosis. No peripancreatic or pericholecystic infiltration is present. The wall thickness of small and large bowel are normal. The appendix is not visualized but there is no right lower quadrant inflammation. There is trace fluid within the pelvis. There is no lymphadenopathy. No suspicious skeletal lesions are present. There is no biliary or pancreatic ductal dilatation. IMPRESSION: 1. No bowel obstruction. No bowel wall thickening. Trace fluid within the pelvis. 2. Small bilateral renal calculi. No ureteral calculi or hydronephrosis. Electronically signed by: Aurelio Garrido M.D. 10/11/2016 8:13 AM Dictated Date/Time: 10/11/2016 8:02 AM
[2016-10-11 08:30] LABS: URINE APPEARANCE TURBID (CLEAR); URINE BILIRUBIN NEG (NEG); URINE COLOR YELLOW; URINE NITRITE NEG (NEG); URINE PH 8.5 (4.5-7.5); URINE SPECIFIC GRAVITY > 1.045 (1.000-1.030); UROBILINOGEN NEG (NEG); ZZUR CULT IF INDIC CLEAN CATCH NO
[2016-10-11 08:31] LABS: MANUAL MICROSCOPIC REQUIRED? NO; REVIEW REQ? NO
--- NOTE | 2016-10-11 09:23 | EMERGENCY ROOM VISIT NOTE ---
ED Visit Note First contact with patient: 07:14 The patient was signed out to me at shift change by Vineet Carrizales PA-C. Please see his dictation for additional details and hospital course. At the time of sign out, ultrasound and laboratory studies were pending. Briefly, the patient has presented to the emergency department 3 times in 4 days. Initially, he presented for hives and was prescribed prednisone. He then developed epigastric pain and tenderness. It was thought that this could be esophagitis or gastritis from the prednisone. He began taking Protonix yesterday. He presented today because of severe and worsening epigastric pain. He also reports dysphasia. He states that he is not able to swallow any solids stating that they will not go down. He states he is only able to swallow a small amount of liquid at a time. The patient complained of 10/10 pain. He was given a total of 2 doses 4 mg IV morphine. The patient has had intractable pain, dysphasia and has been failing outpatient treatment. I discussed the case with Dr. Thomas who states that if the patient is admitted to the hospitalist service he could potentially do an EGD later today. He recommends nothing by mouth status. This was done. I then discussed the case with Dr. Little and his group with evaluate the patient. Diagnosis: Gastritis, dysphagia, esophagitis CT OF THE ABDOMEN AND PELVIS WITH CONTRAST CLINICAL HISTORY: Abdominal pain and nausea. COMPARISON STUDY: Renal ultrasound is October 27, 2014 and right upper quadrant ultrasound performed earlier today. TECHNIQUE: Following IV administration of 92 mL of Optiray-320, axial images of the abdomen and pelvis were obtained from the lung bases to the proximal femurs. Images were reviewed in the axial, sagittal, and coronal planes. IV contrast was administered without complication. A dose lowering technique was utilized adhering to the principles of ALARA. CT DOSE: 1123.51 mGy.cm FINDINGS: The lung bases are clear. The liver, spleen, adrenal glands and pancreas are normal. A 3 mm calculus within the lower pole of the right kidney is noted. There is a punctate calculus within lower pole of the left kidney. There are no ureteral calculi and there is no hydronephrosis. No peripancreatic or pericholecystic infiltration is present. The wall thickness of small and large bowel are normal. The appendix is not visualized but there is no right lower quadrant inflammation. There is trace fluid within the pelvis. There is no lymphadenopathy. No suspicious skeletal lesions are present. There is no biliary or pancreatic ductal dilatation. IMPRESSION: 1. No bowel obstruction. No bowel wall thickening. Trace fluid within the pelvis. 2. Small bilateral renal calculi. No ureteral calculi or hydronephrosis. GALLBLADDER-ABD LIMITED CLINICAL HISTORY: epigastric abd pain pain. Nausea. TECHNIQUE: Ultrasound COMPARISON STUDY: 10/27/2014 FINDINGS: Trace gallbladder sludge. No shadowing gallstones. Normal gallbladder wall. Common bile duct 3 mm. Liver pancreas and right kidney are unremarkable. No evidence for right renal hydronephrosis. IMPRESSION: Trace gallbladder sludge. Normal caliber bile ducts. Otherwise normal exam.
[2016-10-11] MEDS ORDERED: ONDANSETRON INJ 2 MG/ML 2 ML VIAL IV PRN (10:00)
--- NOTE | 2016-10-11 10:11 | History and Physical ---
History & Physical Date & Time of Service: Oct 11, 2016 at 09:52 Chief Complaint: Nausea,Weak,Can't Swallow Primary Care Physician: Mansi Elliott PA-C History of Present Illness Source: patient, clinic records, hospital records Patient is a pleasant 36 y/o male, with PMHx of tobacco abuse, GERD, and h/o IV drug use, who presented to the ED because of epigastric pain and nausea that started just hours before arrival. He was seen by PCP on 10/05 for hives and placed on Prednisone taper x7 days. Patient was seen in the ED on 10/08 due to N /V and hives. Cause of hives was undetermined, and patient was discharge to home with instructions to continue Prednisone and give Zofran PRN for nausea. He returned to ED on 10/10 for chest discomfort; cardiac enzymes negative, CT unremarkable for acute process, and lyme screen negative. He was discharged to home with liquid prednisone and Protonix for ?esophagitis. He felt well after his visit Sunday night. He then took his Prednisone yesterday, started to experience chest discomfort/burning sensation, N/V, and epigastric pain. Symptoms continued throughout the night and he presented back to the ED today for additional workup. Patient admits to h/o GERD for which he takes Prilosec for. He denies h/o EGD or PUD. He has been drinking/eating very little over the past few days due to chest discomfort and dysphagia. +1 epsisode of diarrhea yesterday. Patient denies any fever, chills, sweats, lightheadedness, dizziness , vision changes, palpitations, edema, SOB, wheezing, cough, urinary symptoms, melena, numbness/tingling, weakness, muscle/joint pain, anxiety/depression, active bleeding, or new skin discoloration/changes. Past Medical/Surgical History Medical Problems: h/o of intravenous drug use in remission Tobacco abuse GERD Family History Diabetes mellitus Social History Smoking Status: Current Every Day Smoker Drug Use: none Marital Status: single Occupational Status: employed Multi-Drug Resistant Organisms History of MDRO: No Allergies Coded Allergies: Varenicline (Unverified Allergy, Unknown, SORE THROAT, 10/11/16) Home Medications Scheduled Ondasetron Odt (Zofran Odt), 4 MG SL Q8 Pantoprazole (Protonix), 40 MG PO DAILY Prednisone (Prednisone), 10 MG PO DIRECTED Physical Exam Vital Signs Date Time Temp Pulse Resp B/P (MAP) Pulse Ox O2 Delivery O2 Flow Rate FiO2 10/11/16 09:19 58 20 135/66 98 Room Air 10/11/16 07:46 68 20 125/79 96 Room Air 10/11/16 06:10 36.7 88 24 137/80 95 Room Air General Appearance: no apparent distress, + obese Head: normocephalic, atraumatic Eyes: normal inspection, PERRL ENT: hearing grossly normal Neck: supple Respiratory/Chest: lungs clear, normal breath sounds, no respiratory distress, no accessory muscle use Cardiovascular: regular rate, rhythm Abdomen/GI: normal bowel sounds, soft, + tenderness (mild ttp of epigastric region ) Back: normal inspection, no CVA tenderness Extremities/Musculoskelatal: no calf tenderness, no pedal edema Neurologic/Psych: alert, normal mood/affect, oriented x 3 Skin: normal color, warm/dry, no rash Diagnostics Laboratory Results Results Past 24 Hours Test 10/11/16 06:40 10/11/16 08:15 Range/Units White Blood Count 14.39 4.8-10.8 K/uL Red Blood Count 4.69 4.7-6.1 M/uL Hemoglobin 14.9 14.0-18.0 g/dL Hematocrit 42.4 42-52 % Mean Corpuscular Volume 90.4 80-100 fL Mean Corpuscular Hemoglobin 31.8 25-34 pg Mean Corpuscular Hemoglobin Concent 35.1 32-36 g/dl Platelet Count 274 130-400 K/uL Mean Platelet Volume 9.8 7.4-10.4 fL Neutrophils (%) (Auto) 68.1 % Lymphocytes (%) (Auto) 22.9 % Monocytes (%) (Auto) 8.1 % Eosinophils (%) (Auto) 0.1 % Basophils (%) (Auto) 0.1 % Neutrophils # (Auto) 9.80 1.4-6.5 K/uL Lymphocytes # (Auto) 3.30 1.2-3.4 K/uL Monocytes # (Auto) 1.16 0.11-0.59 K/uL Eosinophils # (Auto) 0.02 0-0.5 K/uL Basophils # (Auto) 0.01 0-0.2 K/uL RDW Standard Deviation 41.0 36.4-46.3 fL RDW Coefficient of Variation 12.5 11.5-14.5 % Immature Granulocyte % (Auto) 0.7 % Immature Granulocyte # (Auto) 0.10 0.00-0.02 K/uL Sodium Level 141 136-145 mmol/L Potassium Level 3.0 3.5-5.1 mmol/L Chloride Level 106 98-107 mmol/L Carbon Dioxide Level 29 21-32 mmol/L Anion Gap 6.0 3-11 mmol/L Blood Urea Nitrogen 13 7-18 mg/dl Creatinine 0.69 0.60-1.40 mg/dl Est Creatinine Clear Calc Drug Dose 203.1 ml/min Estimated GFR () 143.6 Estimated GFR (Non- 123.9 BUN/Creatinine Ratio 19.1 10-20 Random Glucose 121 70-99 mg/dl Calcium Level 8.7 8.5-10.1 mg/dl Total Bilirubin 0.5 0.2-1 mg/dl Aspartate Amino Transf (AST/SGOT) 12 15-37 U/L Alanine Aminotransferase (ALT/SGPT) 22 12-78 U/L Alkaline Phosphatase 39 45-117 U/L Total Protein 6.5 6.4-8.2 gm/dl Albumin 2.8 3.4-5.0 gm/dl Globulin 3.7 2.5-4.0 gm/dl Albumin/Globulin Ratio 0.8 0.9-2 Lipase 85 73-393 U/L Urine Color YELLOW Urine Appearance TURBID CLEAR Urine pH 8.5 4.5-7.5 Urine Specific Alvo > 1.045 1.000-1.030 Urine Protein NEG NEG Urine Glucose (UA) NEG NEG Urine Ketones NEG NEG Urine Occult Blood NEG NEG Urine Nitrite NEG NEG Urine Bilirubin NEG NEG Urine Urobilinogen NEG NEG Urine Leukocyte Esterase NEG NEG Urine WBC (Auto) 1-5 0-5 /hpf Urine RBC (Auto) 0-4 0-4 /hpf Urine Hyaline Casts (Auto) 1-5 0-5 /lpf Urine Epithelial Cells (Auto) 10-20 0-5 /lpf Urine Bacteria (Auto) NEG NEG Diagnostic Radiology GALLBLADDER-ABD LIMITED CLINICAL HISTORY: epigastric abd pain pain. Nausea. TECHNIQUE: Ultrasound COMPARISON STUDY: 10/27/2014 FINDINGS: Trace gallbladder sludge. No shadowing gallstones. Normal gallbladder wall. Common bile duct 3 mm. Liver pancreas and right kidney are unremarkable. No evidence for right renal hydronephrosis. IMPRESSION: Trace gallbladder sludge. Normal caliber bile ducts. Otherwise normal exam. The above report was generated using voice recognition software. It may contain grammatical, syntax or spelling errors. Electronically signed by: Elijah Pugh M.D. 10/11/2016 7:46 AM Dictated Date/Time: 10/11/2016 7:45 AM The status of this report is Signed. Draft = Not yet reviewed or approved by Radiologist. Signed = Reviewed and approved by Radiologist. CT OF THE ABDOMEN AND PELVIS WITH CONTRAST CLINICAL HISTORY: Abdominal pain and nausea. COMPARISON STUDY: Renal ultrasound is October 27, 2014 and right upper quadrant ultrasound performed earlier today. TECHNIQUE: Following IV administration of 92 mL of Optiray-320, axial images of the abdomen and pelvis were obtained from the lung bases to the proximal femurs. Images were reviewed in the axial, sagittal, and coronal planes. IV contrast was administered without complication. A dose lowering technique was utilized adhering to the principles of ALARA. CT DOSE: 1123.51 mGy.cm FINDINGS: The lung bases are clear. The liver, spleen, adrenal glands and pancreas are normal. A 3 mm calculus within the lower pole of the right kidney is noted. There is a punctate calculus within lower pole of the left kidney. There are no ureteral calculi and there is no hydronephrosis. No peripancreatic or pericholecystic infiltration is present. The wall thickness of small and large bowel are normal. The appendix is not visualized but there is no right lower quadrant inflammation. There is trace fluid within the pelvis. There is no lymphadenopathy. No suspicious skeletal lesions are present. There is no biliary or pancreatic ductal dilatation. IMPRESSION: 1. No bowel obstruction. No bowel wall thickening. Trace fluid within the pelvis. 2. Small bilateral renal calculi. No ureteral calculi or hydronephrosis. Electronically signed by: Aurelio Garrido M.D. 10/11/2016 8:13 AM Dictated Date/Time: 10/11/2016 8:02 AM The status of this report is Signed. Draft = Not yet reviewed or approved by Radiologist. Signed = Reviewed and approved by Radiologist. Impression Assessment and Plan Patient is a pleasant 36 y/o male, with PMHx of tobacco abuse, GERD, and h/o IV drug use, who presented to the ED because of epigastric pain and nausea that started just hours before arrival. ?Esophagitis: - Admit to med/surg - Gallbladder US- Trace gallbladder sludge. Normal caliber bile ducts. Otherwise normal exam. - Abdominal/pelvic CT- No bowel obstruction. No bowel wall thickening. Trace fluid within the pelvis. Small bilateral renal calculi. No ureteral calculi or hydronephrosis. - NPO - IVF @ 125 ml/hr - IV Zofran PRN for nausea - IV Protonix BID - Consult GI, appreciate recommendations -- Planning for EGD this afternoon Hypokalemia, 3.0 at admission: - IV NS + 20 mEq KCL - Follow PRP Leukocytosis: No s/s of infection, continue to monitor and follow CBC Chest CTA on 10/09- 4 mm nodule in the right middle lobe- recommend follow-up CT in 12 months GI Prophylaxis: IV Protonix DVT Prophylaxis: TEDs/SCDs and ambulation Code Status: LEVEL I, FULL Dispo: From home- no discharge needs anticipated Level of Care Med/Surg Resuscitation Status FULL RESUSCITATION VTE Prophylaxis VTE Risk Assessment Done? Y/N: Yes Risk Level: Low Given or contraindicated: T.E.D. Stockings, SCD's
[2016-10-11] MEDS ORDERED: IV FLUIDS COMPLETED PRN (10:45)
[2016-10-11] MEDS ORDERED: HYDROmorphone INJ 0.5 MG/0.5 ML SYR IV ONE (11:00)
[2016-10-11] MEDS: NSS + 20MEQ KCL 1000ML 1,000 ML IV SCH ×2 (11:46→19:10)
[2016-10-11] MEDS: MoRPHine SULFATE 2 MG/ML CARP IV PRN ×3 (13:31→20:36)
[2016-10-11] MEDS ORDERED: PROPOFOL IV EMULSION 10 MG/ML 20 ML VIAL IV ONE ×2 (14:23→16:04)
[2016-10-11] MEDS ORDERED: LIDOCAINE HCL 2% 2 ML VIAL (20MG/ML) ONE (14:23)
[2016-10-11] MEDS ORDERED: MIDAZOLAM HCL 1 MG/ML 2ML VIAL ONE (15:22)
--- NOTE | 2016-10-11 15:30 | History & Physical Bridge Note ---
H&P Re-Evaluation Bridge Note: I have examined the patient, reviewed the History & Physical and in the interval since the performance of the History & Physical I have noted the following changes of clinical significance AAOx3 Nls1s2 Lungs CTA Abd soft NT/ND + BS - CCE Plan EGD
--- NOTE | 2016-10-11 15:55 | GI REPORT ---
Procedure Date: 10/11/2016 3:30 PM Procedure: Upper GI endoscopy Indications: Esophageal dysphagia, Nausea with vomiting Medicines: Propofol per Anesthesia Complications: No immediate complications. Estimated blood loss: Minimal. Estimated Blood Loss: Estimated blood loss was minimal. Procedure: Pre-Anesthesia Assessment: - Prior to the procedure, a History and Physical was performed, and patient medications and allergies were reviewed. The patient's tolerance of previous anesthesia was also reviewed. The risks and benefits of the procedure and the sedation options and risks were discussed with the patient. All questions were answered, and informed consent was obtained. Prior Anticoagulants: The patient has taken no previous anticoagulant or antiplatelet agents. ASA Grade Assessment: III - A patient with severe systemic disease. After reviewing the risks and benefits, the patient was deemed in satisfactory condition to undergo the procedure. After obtaining informed consent, the endoscope was passed under direct vision. Throughout the procedure, the patient's blood pressure, pulse, and oxygen saturations were monitored continuously. The Scope was introduced through the mouth, and advanced to the second part of duodenum. The upper GI endoscopy was accomplished without difficulty. The patient tolerated the procedure well. Findings: The examined esophagus was normal. Biopsies were taken with a cold forceps for histology. Estimated blood loss was minimal. Verification of patient identification for the specimen was done by the physician and maintenance technician 3rd shift using the patient's name and medical record number. The entire examined stomach was normal. Biopsies were taken with a cold forceps for histology. Estimated blood loss was minimal. Verification of patient identification for the specimen was done by the physician and maintenance technician 3rd shift using the patient's name and medical record number. The 2nd part of the duodenum was normal. Patchy mild inflammation characterized by erythema was found in the duodenal bulb. The cardia and gastric fundus were normal on retroflexion. Retained gastric contents are not identified on this exam. Impression: - Normal esophagus. Biopsied. - Normal stomach. Biopsied. - Normal 2nd part of the duodenum. - Acute duodenitis. Recommendation: - Await pathology results. - [facility]. MD Hayden Beltran MD 10/11/2016 3:54:37 PM This report has been signed electronically. Note Initiated On: 10/11/2016 3:30 PM I attest to the content of the Intraoperative Record and orders documented therein, exceptions below
--- NOTE | 2016-10-11 16:06 | Anesthesiology Progress Note ---
Anesthesia Post Op Note Date & Time Oct 11, 2016 at 16:06 Vital Signs Pain Intensity: 3 Vital Signs Past 12 Hours Date Time Temp Pulse Resp B/P (MAP) Pulse Ox O2 Delivery O2 Flow Rate FiO2 10/11/16 15:08 36.8 89 18 140/83 (102) 94 Room Air 10/11/16 14:37 36.7 72 16 129/71 99 Room Air 10/11/16 11:15 99 Room Air 10/11/16 11:06 99 Room Air 10/11/16 11:05 36.8 71 18 128/79 (95) 97 Room Air 10/11/16 10:29 64 18 115/72 94 Room Air 10/11/16 09:19 58 20 135/66 98 Room Air 10/11/16 07:46 68 20 125/79 96 Room Air 10/11/16 06:10 36.7 88 24 137/80 95 Room Air Notes Mental Status: alert / awake / arousable, participated in evaluation Pt Amnestic to Procedure: Yes Nausea / Vomiting: adequately controlled Pain: adequately controlled Airway Patency, RR, SpO2: stable & adequate BP & HR: stable & adequate Hydration State: stable & adequate Anesthetic Complications: no major complications apparent
[2016-10-11] MEDS: PANTOprazole INJ 40 MG in SYRINGE 0 ML IV SCH (20:36)
--- NOTE | 2016-10-11 21:10 | GASTROINTESTINAL CONSULTATION ---
DATE OF CONSULTATION: 10/11/2016 CHIEF COMPLAINT: Nausea, vomiting, regurgitation, dysphagia, chest pressure. HISTORY OF PRESENT ILLNESS: Mr. Aragon is a 36-year-old white male who was presented to the Emergency Room 3 times during the last 4-5 days for these chief complaint described above. The patient denies any event of eating that caused this problem but just noted that his symptoms began earlier this week for which they intensified and he presented to the Emergency Room. He has had several diagnostic studies performed including labs, imaging studies, chest CT, and chest x-ray and today underwent gallbladder and abdominal CT. The patient does report a history of GERD for which he uses PPI therapy (omeprazole) and has used NSAIDs including aspirin. He has no prior history of esophageal symptoms, peptic ulcer disease. Most of the recent blood work and cardiac workup has been unremarkable. The patient was placed on Protonix and liquid prednisone. PAST MEDICAL HISTORY: Significant for GERD, tobacco use, IV drug use, although reports that he has been in remission. FAMILY HISTORY: Significant for diabetes. SOCIAL HISTORY: The patient denies current alcohol use, does smoke cigarettes, is single ALLERGIES: HE is ALLERGIC TO VARENICLINE. HOME MEDICATIONS: Include Zofran, pantoprazole, and prednisone; all recently prescribed during the ER visits this week. REVIEW OF SYSTEMS: Otherwise noncontributory based on 13-point exam except for mentioned above. The patient denies hematemesis, coffee-ground emesis, abdominal pain, weight loss, melena, bright red blood per rectum, significant joint pains or rashes. PHYSICAL EXAMINATION: VITAL SIGNS: On admission today - blood pressure 137/80, respirations 24, pulse 88, temperature 36.7, 95% on room air. GENERAL: The patient is awake, alert and oriented x3, accompanied by family members. HEENT: Sclerae are anicteric, conjunctiva moist, oral mucosa moist. EXTREMITIES: With normal range of motion. NEUROLOGICALLY: He is nonfocal. There is no evidence of cervical or supraclavicular adenopathy. I do not appreciate thyromegaly. HEART: Normal S1, S2. LUNGS: Clear to auscultation without rales, rhonchi or wheezes. ABDOMEN: Soft, obese, nontender, nondistended with good bowel sounds, no rebound or guarding. I do not appreciate any hepatosplenomegaly. There are no abdominal bruits or masses. There is no evidence of ascites or shifting dullness. EXTREMITIES: Without clubbing, cyanosis or edema. SKIN: Warm and dry without evidence of rash. LABORATORY STUDIES: Today show white count of 14.4, hemoglobin 14.9, hematocrit 42.4, platelets 274,000. The leukocytosis may reflect the patient's recent start of prednisone from the ER. BUN and creatinine are 13 and 0.7, total bilirubin 0.5, AST 12, ALT 22, alkaline phosphatase 39, total protein 6.5, albumin 2.8, lipase 85. Urine was unremarkable for urinary tract infection. There is no evidence of urinary bacteria, ketones, occult blood, nitrites or leukocyte esterase positivity. IMAGING STUDIES: Gallbladder ultrasound today revealed some mild gallbladder sludge but normal biliary ducts and otherwise normal. CT showed a small bilateral renal calculi without hydronephrosis. There is no evidence of bowel obstruction or wall thickening. There are no abnormal lymph nodes. Lung bases are clear. Liver, spleen, adrenals and pancreas were all normal. Area around the gallbladder shows no pericholecystic infiltrate or fluid collection. IMPRESSION AND PLAN: The patient with relatively recent onset over the past 4-5 days of vomiting, chest discomfort, regurgitation, mild dysphagia to solids without discrete odynophagia. The patient has had multiple Emergency Room visits and 1 of them a trial of proton pump inhibitor and prednisone was administered. Based on the normal liver pattern, would not expect the gallbladder sludge to be a cover, particularly in the absence of inflammatory features to the gallbladder. He is hypokalemic on admission. I made the following recommendations: Source of the patient's symptoms are unclear. Certainly, peptic ulcer disease, gastritis, Helicobacter pylori infection may be a source of the patient's regurgitation and nausea and vomiting. Reflux although not presently occurring has been experienced in the past by the patient and this may reflect a reflux equivalent. Based upon these clinical history and difficulty in his reports that he can handle food, I believe it is prudent to perform an upper endoscopy and will perform this later this afternoon. Would keep patient n.p.o., PPI therapy. Follow leukocytosis for any changes. All questions answered.
[2016-10-12 00:05] VITALS: BP 129/76; PULSE 92; TEMP 36.9; O2SAT 94
[2016-10-12] MEDS: NSS + 20MEQ KCL 1000ML 1,000 ML IV SCH ×2 (03:00→11:06)
[2016-10-12] MEDS: MoRPHine SULFATE 2 MG/ML CARP IV PRN ×2 (03:05→07:46)
[2016-10-12 06:49] LABS: MEAN CELL VOLUME 91.5 fL (80-100); MEAN CORPUSCULAR HEMOGLOBIN 32.1 pg (25-34); MEAN CORPUSCULAR HGB CONC 35.1 g/dl (32-36); MEAN PLATELET VOLUME 9.6 fL (7.4-10.4); PLATELET COUNT 244 K/uL (130-400); RED BLOOD COUNT 4.48 M/uL (4.7-6.1); WHITE BLOOD COUNT 14.56 K/uL (4.8-10.8)
[2016-10-12 07:25] LABS: BLOOD UREA NITROGEN 6 mg/dl (7-18); BUN/CREATININE RATIO 10.9 (10-20); CALCIUM 7.9 mg/dl (8.5-10.1); CARBON DIOXIDE 27 mmol/L (21-32); CHLORIDE 106 mmol/L (98-107); CREATININE 0.58 mg/dl (0.60-1.40); GLUCOSE 103 mg/dl (70-99); POTASSIUM 3.4 mmol/L (3.5-5.1); SODIUM 140 mmol/L (136-145)
[2016-10-12 07:34] VITALS: BP 120/69; PULSE 86; TEMP 36.8; O2SAT 94
[2016-10-12] MEDS: PANTOprazole INJ 40 MG in SYRINGE 0 ML IV SCH (09:21)
[2016-10-12] MEDS ORDERED: PANT40TA PO (09:36)
[2016-10-12] MEDS ORDERED: ONDA4TAB10 SL (09:36)
[2016-10-12] MEDS ORDERED: OXYC-643 PO (09:36)
[2016-10-12] MEDS ORDERED: CYCL5TAB PO (09:36)
[2016-10-12] MEDS ORDERED: CYCLOBENZAPRINE HCL 10 MG TAB PO ONE (09:45)
--- NOTE | 2016-10-12 09:47 | Discharge Instructions ---
Discharge Instructions Date of Service Oct 12, 2016. Admission Reason for Admission: Dysphagia, Epigastric Abdominal Pain, Nausea.. Discharge Discharge Diagnosis / Problem: Dysphagia; epigastric pain Discharge Goals Goal(s): Decrease discomfort, Learn about illness, Diagnostic testing, Therapeutic intervention, Prevent Disease Progression Activity Recommendations Activity Limitations: resume your previous activity . Instructions / Follow-Up Instructions / Follow-Up You were admitted to the hospital because of abdominal pain, nausea, vomiting, and difficulty swallowing. An EGD (scope of the throat/stomach) was preformed by GI, Dr. Thomas. The only remarkable finding was duodenitis (inflammation of the first part of the small intestine). Take Protonix 40 mg by mouth once daily. You may take Zofran 4 mg sublingual as needed for nausea. For your hives: The cause of your hives has been undetermined at this time. Please follow-up with PCP for additional workup and management. DISCONTINUE Prednisone as discussed due to possibility of causing you symptoms at admission. You may take Benadryl 25-50 mg by mouth every 6-8 hours as needed. Do NOT exceed more than 300 mg per day. For your bilateral side pain/cramping: You may take Percocet 5/325 mg, 1 tablet by mouth every 6 hours as needed for pain. You may take Flexeril 5 mg by mouth every 8 hours as needed for muscle cramping. At this time, please avoid NSAID use (ex: Aspirin, Motrin, Naprosyn, Ibuprofen) as these medications can be very irritating to the stomach. FOLLOW-UPS: Please follow-up with your PCP within 5-7 days Please follow-up/keep all of your subspecialty appointments Current Hospital Diet Patient's current hospital diet: Regular Diet Discharge Diet Recommended Diet: Regular Diet Procedures Procedures Performed: EGD with BX, gallbladder ultrasound, abdominal/pelvic CT Pending Studies Studies pending at discharge: yes List of pending studies: EGD pathology HCV RNA Medical Emergencies . Who to Call and When: Medical Emergencies: If at any time you feel your situation is an emergency, please call 911 immediately. . Non-Emergent Contact Non-Emergency issues call your: Primary Care Provider Call Non-Emergent contact if: you have a fever, your pain is not controlled, your pain is worsening, your pain is unusual for you, your pain is concerning you, you have any medication questions . . "Provider Documentation" section prepared by Alicia Warner. . VTE Core Measure Inpt VTE Proph given/why not?: Delmy Barry, [facility]
--- NOTE | 2016-10-12 10:01 | Discharge Summary ---
Discharge Summary Date of Service Oct 12, 2016. (Alicia Warner, BILL) Discharge Summary Admission Date: Oct 11, 2016 at 09:52 Discharge Date: Oct 12, 2016 Discharge Disposition: Home Principal Diagnosis: Dysphagia Problems/Secondary Diagnoses: Abdominal pain, N/V, and dysphagia Hypokalemia Leukocytosis Chest CTA on 10/09- 4 mm nodule in the right middle lobe Preliminary Hep C positive Hives Procedures: GALLBLADDER-ABD LIMITED CLINICAL HISTORY: epigastric abd pain pain. Nausea. TECHNIQUE: Ultrasound COMPARISON STUDY: 10/27/2014 FINDINGS: Trace gallbladder sludge. No shadowing gallstones. Normal gallbladder wall. Common bile duct 3 mm. Liver pancreas and right kidney are unremarkable. No evidence for right renal hydronephrosis. IMPRESSION: Trace gallbladder sludge. Normal caliber bile ducts. Otherwise normal exam. The above report was generated using voice recognition software. It may contain grammatical, syntax or spelling errors. Electronically signed by: Elijah Pugh M.D. 10/11/2016 7:46 AM Dictated Date/Time: 10/11/2016 7:45 AM The status of this report is Signed. Draft = Not yet reviewed or approved by Radiologist. Signed = Reviewed and approved by Radiologist. CT OF THE ABDOMEN AND PELVIS WITH CONTRAST CLINICAL HISTORY: Abdominal pain and nausea. COMPARISON STUDY: Renal ultrasound is October 27, 2014 and right upper quadrant ultrasound performed earlier today. TECHNIQUE: Following IV administration of 92 mL of Optiray-320, axial images of the abdomen and pelvis were obtained from the lung bases to the proximal femurs. Images were reviewed in the axial, sagittal, and coronal planes. IV contrast was administered without complication. A dose lowering technique was utilized adhering to the principles of ALARA. CT DOSE: 1123.51 mGy.cm FINDINGS: The lung bases are clear. The liver, spleen, adrenal glands and pancreas are normal. A 3 mm calculus within the lower pole of the right kidney is noted. There is a punctate calculus within lower pole of the left kidney. There are no ureteral calculi and there is no hydronephrosis. No peripancreatic or pericholecystic infiltration is present. The wall thickness of small and large bowel are normal. The appendix is not visualized but there is no right lower quadrant inflammation. There is trace fluid within the pelvis. There is no lymphadenopathy. No suspicious skeletal lesions are present. There is no biliary or pancreatic ductal dilatation. IMPRESSION: 1. No bowel obstruction. No bowel wall thickening. Trace fluid within the pelvis. 2. Small bilateral renal calculi. No ureteral calculi or hydronephrosis. Electronically signed by: Aurelio Garrido M.D. 10/11/2016 8:13 AM Dictated Date/Time: 10/11/2016 8:02 AM The status of this report is Signed. Draft = Not yet reviewed or approved by Radiologist. Signed = Reviewed and approved by Radiologist. EGD: Impression: Normal stomach- biopsied Normal esophagus- biopsied Acute duodenitis 2nd part of duodenal unremarkable Consultations: Gastroenterology (Alicia Warner PA-C) Medication Reconciliation New Medications: Cyclobenzaprine Hcl (Flexeril) 5 Mg Tab 5 MG PO TID PRN for Muscle Spasms for 3 Days, #9 TAB PRN Oxycodone/Acetaminophen 5MG/325MG (Oxycodone/Acetaminophen 5MG/325MG) 1 Tab Tab 1 TABLET PO Q6H PRN for prn for 3 Days, #12 TAB Continued Medications: Ondasetron Odt (Zofran Odt) 4 Mg Tab 4 MG SL Q8 for Nausea for 10 Days, #30 TAB (This prescription has been renewed) Pantoprazole (Protonix) 40 Mg Tab 40 MG PO DAILY for 30 Days, #30 TAB (This prescription has been renewed) Discontinued Medications: Prednisone (Prednisone) 10 Mg Tab 10 MG PO DIRECTED, #31 Referrals At Discharge Follow up Referrals: Family Practice Referral - Within 1 Week with Mansi Elliott PA-C Discharge Exam Prior to discharge, patient reports symptoms have resolved. Tolerated clear liquid diet, and advanced as tolerated. +bilateral side pain/cramping- controlled with IV Morphine. States improving since no more nausea/vomiting. +hives- comes and goes. No airway compromise. Occurred 2 years ongoing. Unknown cause. Thinks it has something to do with work. Denies any changes in daily lifestyle, medications, or foods. Discussed discontinuing Prednisone since symptoms have resolved since discontinuing. Benadryl helps. Review of Systems: Constitutional: No fever, No chills, No sweats, No weakness, No fatigue Respiratory: No cough, No wheezing, No shortness of breath, No dyspnea on exertion, No dyspnea at rest, No hemoptysis Cardiovascular: No chest pain, No edema, No palpitations Abdomen: No pain, No nausea, No vomiting, No diarrhea, No constipation Musculoskeletal: + muscle pain, No joint pain, No swelling, No calf pain Genitourinary - Male: No hematuria, No dysuria Neurologic: No weakness, No numbness/tingling Psychiatric: No depression symptoms, No anxiety Hematologic / Lymphatic: No abnormal bleeding/bruising Integumentary: + rash (hives), No itch, No new/changing skin lesions Physical Exam: General Appearance: no apparent distress, + obese Eyes: normal inspection, PERRL ENT: hearing grossly normal Neck: supple Respiratory/Chest: lungs clear, no respiratory distress, no accessory muscle use Cardiovascular: regular rate, rhythm Abdomen / GI: normal bowel sounds, non tender, soft Extremities: no calf tenderness, no pedal edema Neurologic/Psychiatric: alert, normal mood/affect, oriented x 3 Skin: normal color, warm/dry, no rash (Alicia Warner, BILL) Hospital Course Admission H&P: Patient is a pleasant 36 y/o male, with PMHx of tobacco abuse, GERD, and h/o IV drug use, who presented to the ED because of epigastric pain and nausea that started just hours before arrival. He was seen by PCP on 10/05 for hives and placed on Prednisone taper x7 days. Patient was seen in the ED on 10/08 due to N /V and hives. Cause of hives was undetermined, and patient was discharge to home with instructions to continue Prednisone and give Zofran PRN for nausea. He returned to ED on 10/10 for chest discomfort; cardiac enzymes negative, CT unremarkable for acute process, and lyme screen negative. He was discharged to home with liquid prednisone and Protonix for ?esophagitis. He felt well after his visit Sunday night. He then took his Prednisone yesterday, started to experience chest discomfort/burning sensation, N/V, and epigastric pain. Symptoms continued throughout the night and he presented back to the ED today for additional workup. Patient admits to h/o GERD for which he takes Prilosec for. He denies h/o EGD or PUD. He has been drinking/eating very little over the past few days due to chest discomfort and dysphagia. +1 epsisode of diarrhea yesterday. Patient denies any fever, chills, sweats, lightheadedness, dizziness , vision changes, palpitations, edema, SOB, wheezing, cough, urinary symptoms, melena, numbness/tingling, weakness, muscle/joint pain, anxiety/depression, active bleeding, or new skin discoloration/changes. Physical Exam Vital Signs Date Time Temp Pulse Resp B/P (MAP) Pulse Ox O2 Delivery O2 Flow Rate FiO2 10/11/16 09:19 58 20 135/66 98 Room Air 10/11/16 07:46 68 20 125/79 96 Room Air 10/11/16 06:10 36.7 88 24 137/80 95 Room Air General Appearance: no apparent distress, + obese Head: normocephalic, atraumatic Eyes: normal inspection, PERRL ENT: hearing grossly normal Neck: supple Respiratory/Chest: lungs clear, normal breath sounds, no respiratory distress, no accessory muscle use Cardiovascular: regular rate, rhythm Abdomen/GI: normal bowel sounds, soft, + tenderness (mild ttp of epigastric region ) Back: normal inspection, no CVA tenderness Extremities/Musculoskelatal: no calf tenderness, no pedal edema Neurologic/Psych: alert, normal mood/affect, oriented x 3 Skin: normal color, warm/dry, no rash Hospital Course: Abdominal pain, N/V, and dysphagia- RESOLVED: - Admit to med/surg - Gallbladder US- Trace gallbladder sludge. Normal caliber bile ducts. Otherwise normal exam. - Abdominal/pelvic CT- No bowel obstruction. No bowel wall thickening. Trace fluid within the pelvis. Small bilateral renal calculi. No ureteral calculi or hydronephrosis. - NPO--> advanced diet as tolerated, tolerated well prior to discharge - IVF @ 125 ml/hr - IV Zofran PRN for nausea - IV Protonix BID- transition to PO Protonix 40 mg daily - Consult GI, appreciate recommendations -- EGD on 10/[address] Thomas- report notes duodenitis, otherwise unremarkable. Biopsies pending Hypokalemia, 3.0 at admission- RESOLVING: - IV NS + 20 mEq KCL - Follow PRP Leukocytosis: No s/s of infection, continue to monitor and follow CBC Chest CTA on 10/09- 4 mm nodule in the right middle lobe- recommend follow-up CT in 12 months Preliminary Hep C positive: HCV RNA pending- follow up with PCP Hives: - Avoid Prednisone, ?cause of symptoms at admission- symptoms have improved since being off Prednisone x2 days - Benadryl PRN - Follow-up with PCP for additional work-up/management GI Prophylaxis: IV Protonix DVT Prophylaxis: TEDs/SCDs and ambulation Code Status: LEVEL I, FULL Dispo: Discharge to home Total Time Spent: Greater than 30 minutes This includes examination of the patient, discharge planning, medication reconciliation, and communication with other providers. (Alicia Warner PA-C) pt was seen and examined has done well post endoscopy, unclear if just prednisone associated esophageal irritation, will be home on PPI follow up with pcp, (Kuldeep Little M.D.) Discharge Instructions Please refer to the electronic Patient Visit Report (Discharge Instructions) for additional information. (Alicia Warner PA-C) Follow-Up Please follow-up with your PCP within 5-7 days Please follow-up/keep all of your subspecialty appointments (Alicia Warner PA-C) Additional Copies To Mansi Elliott PA-C
[2016-10-12 10:08] VITALS: BP 120/69; PULSE 86; TEMP 36.8; O2SAT 94
[2016-10-12] MEDS ORDERED: POTASSIUM CHLORIDE 20 MEQ TABCR PO ONE (10:15)
--- NOTE | 2016-10-12 17:34 | GASTROENTEROLOGY PROGRESS NOTE ---
DATE: 10/12/2016 SUBJECTIVE: The patient is feeling well since his upper endoscopy yesterday. Tolerated liquids today and is awaiting his noontime male. If tolerated, plans are for discharge today. Random biopsies were taken from the esophagus and are pending at the time of discharge. LABORATORY STUDIES: Today, white count 14.5, hemoglobin 14.4, and platelets 244,000. Serum chemistry with potassium 3.4, BUN and creatinine 6 and 0.5. Hepatitis C antibody is positive for this patient preliminarily and qualitative HCV RNA is pending. On admission, his laboratories, LFTs were normal. ALT 22, AST 12, and alkaline phosphatase 39. Total protein 6.5. VITAL SIGNS: Today, the patient is afebrile at 36.8, blood pressure 120/69, respirations 16, heart rate 86 and room air sats 94%. REVIEW OF SYSTEMS: Otherwise noncontributory based on 13-point exam except for mentioned above. The patient has not had any nausea or vomiting. PHYSICAL EXAMINATION: Today, HEART: Normal S1 and S2. LUNGS: Clear to auscultation. ABDOMEN: Soft, flat, nontender, and nondistended with good bowel sounds. EXTREMITIES: Without clubbing, cyanosis or edema. RECTAL: Deferred at this time. IMPRESSION: 1. Regarding the patient's symptoms of nausea, vomiting and chest discomfort, an endoscopy failed to reveal any structural defects or inflammatory features in the esophagus, stomach, or proximal duodenum. We will await results of biopsies for further recommendations. Would discharge the patient on PPI b.i.d. for the next 4-8 weeks and then can reduce this down if symptoms permit. 2. Regarding the patient's hepatitis C antibody, this is preliminarily positive and qualitative assessment is pending. This can be followed as an outpatient in GI clinic. We will make arrangements for an office visit over the next several weeks. If symptoms return, gallbladder workup may be beneficial. All questions answered.
[2016-10-13] MEDS ORDERED: PANTOprazole SOD 40 MG TAB PO SCH (09:00)
[2016-10-15 19:29] LABS: HEPATITIS C RNA TMA QUAL Detected
== END 2016-10-12 13:13 | disposition home or self-care (01) ==
LOC: C.EDB 06:07 → C.MSN 09:52 → ENRESERV 10:20
PROVIDERS: ADMIT Internal Medicine; ATTEND Internal Medicine
DX: K20.9 Esophagitis, unspecified (principal); K29.80 Duodenitis without bleeding; D72.829 Elevated white blood cell count, unspecified; K29.70 Gastritis, unspecified, without bleeding; E87.6 Hypokalemia; R13.10 Dysphagia, unspecified; F17.200 Nicotine dependence, unspecified, uncomplicated; Z83.3 Family history of diabetes mellitus

== ENCOUNTER → 2016-10-31 | Outpatient (CLI) | payer BC ==
[~2016-10-31] MED LIST changes: -LORA10CA2 PO; -PRED10TA PO; -PRLSR20 PO; -PRLUDL5 PO
[2016-10-31 17:24] LABS: BASO % 0.3 %; BASO ABS # 0.02 K/uL (0-0.2); COMPLETE YES; EOS % 3.3 %; HEMATOCRIT 46.3 % (42-52); IG% 0.4 %; LYMPH % 42.2 %; LYMPH ABS # 3.36 K/uL (1.2-3.4); MEAN CELL VOLUME 93.9 fL (80-100); MEAN CORPUSCULAR HEMOGLOBIN 32.5 pg (25-34); MEAN CORPUSCULAR HGB CONC 34.6 g/dl (32-36); MEAN PLATELET VOLUME 10.6 fL (7.4-10.4); NEUT % 47.8 %; PLATELET COUNT 242 K/uL (130-400); RED BLOOD COUNT 4.93 M/uL (4.7-6.1); WHITE BLOOD COUNT 7.96 K/uL (4.8-10.8)
[2016-10-31 17:30] LABS: PROTHROMBIN TIME (PATIENT) 10.7 SECONDS (9.0-12.0)
[2016-10-31 17:58] LABS: ALT/SGPT 101 U/L (12-78); BLOOD UREA NITROGEN 11 mg/dl (7-18); BUN/CREATININE RATIO 19.1 (10-20); CALCIUM 9.1 mg/dl (8.5-10.1); CARBON DIOXIDE 30 mmol/L (21-32); CHLORIDE 105 mmol/L (98-107); CREATININE 0.55 mg/dl (0.60-1.40); GLUCOSE 98 mg/dl (70-99); POTASSIUM 3.4 mmol/L (3.5-5.1); SODIUM 140 mmol/L (136-145)
[2016-10-31 18:04] LABS: HEPATITIS B AB POS
[2016-10-31 18:09] LABS: ALKALINE PHOSPHATASE 62 U/L (45-117); AST/SGOT 60 U/L (15-37)
[2016-11-01 08:09] LABS: ESTIMATED AVERAGE GLUCOSE 123 mg/dl; HA1C FLAG Normal (Normal)
[2016-11-05 05:01] LABS: ANTI-CENTROMERE AB <1.0 NEG AI (<1.0 NEG); ANTI-SS-A <1.0 NEG AI (<1.0 NEG); ANTI-SS-B <1.0 NEG AI (<1.0 NEG); CARBOXY THC TO CREAT RATIO 281 NG/MG; CARBOXY THC UR GC/MS 169 NG/ML (CUTOFF=5); DNA ds CRITHIDIA NEGATIVE (NEGATIVE); HEPATITIS C VIRAL RNA BY PCR 664000 IU/ML (<15); HEPATITIS C VIRAL RNA(LOG) PCR 5.82 LOG IU/ML (<1.18); LIVER FIBR APOLIPOPROTEIN A-1 119 mg/dL (94-176); LIVER FIBROS ALPHA-2-MACROGLOB 318 mg/dL (106-279); LIVER FIBROSIS GGT 32 U/L (3-90); MICROSOMAL AB <1 IU/ML (<9); NECROINFLAMMATION ACT GRADE A1-A2; Sm Antibody <1.0 NEG AI (<1.0 NEG); URCREATININE 62.5 MG/DL (>/= 20)
== END | disposition home or self-care (01) ==
LOC: C.LAB1850 15:57
PROVIDERS: ATTEND Internal Medicine Infectious Disease
DX: B18.2 Chronic viral hepatitis C (principal)

== ENCOUNTER → 2016-11-08 | Outpatient (CLI) | payer BC ==
[2016-11-12 18:30] LABS: ASPERGILLUS FLAVUS Negative (Negative); ASPERGILLUS FUMIGATUS Negative (Negative); ASPERGILLUS NIGER Negative (Negative)
[2016-11-13 15:17] LABS: ASPERGILLUS FUMIGATUS NEGATIVE (NEGATIVE); CLAM CLASS 0; CLAM IGE <0.10 KU/L; CRAB CLASS 0; CRAB IGE <0.10 KU/L; HISTOPLASMA AB Negative (Negative); M. FAENI (S. RECTIVIRGULA) NEGATIVE (NEGATIVE); PEANUT IGE <0.10 KU/L; PIGEON SERUM NEGATIVE (NEGATIVE); SACCHAROMONOSPORA VIRIDIS AB NEGATIVE (NEGATIVE); SHRIMP CLASS 0; SOY CLASS 0; SOY IGE <0.10 KU/L; THERMOACTINOMYCES CANDIDUS NEGATIVE (NEGATIVE); THERMOACTINOMYCES VULGARIS NEGATIVE (NEGATIVE)
== END | disposition home or self-care (01) ==
LOC: C.LAB1850 14:38
PROVIDERS: ATTEND Internal Medicine Pulmonary Disease
DX: L50.1 Idiopathic urticaria (principal)

== ENCOUNTER → 2017-05-11 | Outpatient (CLI) | payer OTHER ==
--- NOTE | 2017-05-11 13:32 | DIAGNOSTIC IMAGING REPORT ---
(CHEST) THORAX WITHOUT CT DOSE: 727.30 mGy.cm CLINICAL HISTORY: 36 years-old Male with TOBACCO SMOKER,PULMONARY NODULES. Follow-up study in a patient with pulmonary nodules TECHNIQUE: Multiaxial CT images of the chest were performed without contrast. A dose lowering technique was utilized adhering to the principles of ALARA. COMPARISON: CTA of the chest 10/09/2016. FINDINGS: Heterogeneous thyroid without dominant nodule. Mild residual thymic tissue of the anterior mediastinum. No pathologically enlarged lymph nodes by CT size criteria. Heart is normal in size without pericardial effusion. No thoracic aneurysm identified. There is no pneumothorax or pleural effusion. Punctate calcification granuloma the left lung apex. Previously described 1.8 cm groundglass opacity of the left lower lobe is again seen measuring 1.7 cm in length on image 205 series 4 and appears less conspicuous on today's study. The previously noted pleural-based 7 mm groundglass opacity of the lingula anteriorly is no longer identified. Lastly, the 8mm groundglass opacity of the left upper lobe medially is also no longer identified. No new or enlarging groundglass or solid pulmonary nodules. There is minimal subsegmental atelectasis of the lung bases. Pleural-based 5 mm nodule of the lateral basal segment left lower lobe, image 2:15 series 4 is unchanged. 4 mm nodule of the right middle lobe, image 173 series 3 is also unchanged. Central airways are patent. No acute abnormality of the imaged upper abdomen. Nonobstructing calculi of the interpolar right kidney. Soft tissues are unremarkable. Bones appear intact. IMPRESSION: 1. No acute intrathoracic abnormality. 2. No lobar airspace consolidation or adenopathy. 3. Groundglass opacity of the left lower lobe has slightly decreased in size and appears less conspicuous from comparison study now measuring 1.7 cm in length likely reflecting an area of postinflammatory scarring. There is resolution of the previously noted groundglass opacities of the left upper lobe. 4. Unchanged solid pleural-based nodules of the left lower and right middle lobes measuring up to 5 mm. Please refer to below summary of Fleischner criteria recommendations for follow-up of incidental CT nodules (Beba Cedeno, Guidelines for management of small pulmonary nodules detected on CT scans: A statement from the Fleischner Society, Radiology 237: [phone].) SOLID NODULES Solitary nodule size: <6 mm * Low risk patients: no follow-up needed * high risk patients: optional CT at 12 months Solitary nodule size: 6-8 mm * Low risk patients: follow-up at 6-12 months, then consider further follow-up at 18-24 months * high risk patients: initial follow-up CT at 6-12 months and then at 18-24 months if no change Solitary nodule size: >8 mm * either low or high risk patients - consider follow-up CT at 3 months, and/or CT-PET, and/or biopsy Multiple nodules size: <6 mm * Low risk patients: no routine follow-up * high risk patients: optional CT at 12 months Multiple nodules size: 6-8 mm * Low risk patients: follow-up at 3-6 months, then consider further follow-up at 18-24 months * high risk patients: follow-up at 3-6 months, then at 18-24 months if no change Multiple nodules size: >8 mm * Low risk patients: follow-up at 3-6 months, then consider further follow-up at 18-24 months * high risk patients: follow-up at 3-6 months, then at 18-24 months if no change Note: newly detected indeterminate nodule in persons 35 years of age or older. * Low risk patients: minimal or absent history of smoking and/or other known risk factors * high risk patients: history of smoking or of other known risk factors (e.g. first degree relative with lung cancer, or exposure to asbestos, radon, uranium) * if a nodule up to 8 mm is partly solid or is ground glass further follow-up is required after 24 months to exclude possible slow growing adenocarcinoma (NELLA) SUBSOLID NODULES Solitary pure ground-glass nodule * nodule size <6 mm - no CT follow-up required * nodule size >=6 mm - follow-up CT at 6-12 months, then every 2 years until 5 years Solitary part-solid nodule * nodule size <6 mm - no CT follow-up required * nodule size >=6 mm - follow-up CT at 3-6 months. If unchanged, and solid component remains <6 mm, then annual follow-up for 5 years Multiple subsolid nodules * nodule size <6 mm - follow-up CT at 3-6 months, consider further follow-up at 2 and 4 years if stable * nodule size >=6 mm - follow-up CT at 3-6 months, subsequent management based on the most suspicious nodule(s) The above report was generated using voice recognition software. It may contain grammatical, syntax or spelling errors. Electronically signed by: Saturnino Terrazas M.D. 05/11/2017 1:31 PM Dictated Date/Time: 05/11/2017 1:23 PM
== END | disposition home or self-care (01) ==
LOC: C.CTS 13:05
PROVIDERS: ATTEND Physician Assistant
DX: F17.200 Nicotine dependence, unspecified, uncomplicated (principal); R91.8 Other nonspecific abnormal finding of lung field

== ENCOUNTER → 2017-06-08 | Outpatient (CLI) | payer OTHER ==
[2017-06-08 13:22] LABS: BASO % 0.2 %; BASO ABS # 0.02 K/uL (0-0.2); EOS % 0.7 %; EOS ABS # 0.06 K/uL (0-0.5); HEMATOCRIT 52.8 % (42-52); HEMOGLOBIN 18.4 g/dL (14.0-18.0); IG# 0.02 K/uL (0.00-0.02); LYMPH % 27.2 %; LYMPH ABS # 2.38 K/uL (1.2-3.4); MEAN CELL VOLUME 93.1 fL (80-100); MEAN CORPUSCULAR HEMOGLOBIN 32.5 pg (25-34); MEAN CORPUSCULAR HGB CONC 34.8 g/dl (32-36); MEAN PLATELET VOLUME 10.5 fL (7.4-10.4); MONO % 6.1 %; MONO ABS # 0.53 K/uL (0.11-0.59); NEUT % 65.6 %; NEUT ABS # 5.75 K/uL (1.4-6.5); PLATELET COUNT 208 K/uL (130-400); RED CELL DISTRIBUTION WIDTH CV 12.9 % (11.5-14.5); RED CELL DISTRIBUTION WIDTH SD 43.9 fL (36.4-46.3); WHITE BLOOD COUNT 8.76 K/uL (4.8-10.8)
[2017-06-08 13:36] LABS: INR 1.1 (0.9-1.1)
[2017-06-08 16:42] LABS: ALBUMIN 4.1 gm/dl (3.4-5.0); ALT/SGPT 331 U/L (12-78); AST/SGOT 127 U/L (15-37); BLOOD UREA NITROGEN 12 mg/dl (7-18); CALCIUM 9.6 mg/dl (8.5-10.1); CARBON DIOXIDE 28 mmol/L (21-32); CREATININE 0.81 mg/dl (0.60-1.40); GLUCOSE 97 mg/dl (70-99); SODIUM 139 mmol/L (136-145)
[2017-06-08 16:45] LABS: ALKALINE PHOSPHATASE 69 U/L (45-117); TOTAL PROTEIN 8.6 gm/dl (6.4-8.2)
[2017-06-14 02:19] LABS: HEPATITIS C VIRAL RNA BY PCR 1210000 IU/ML (<15); HEPATITIS C VIRAL RNA(LOG) PCR 6.08 LOG IU/ML (<1.18)
== END | disposition home or self-care (01) ==
LOC: C.LAB1850 11:36
PROVIDERS: ATTEND Internal Medicine Infectious Disease
DX: B18.2 Chronic viral hepatitis C (principal)

== ENCOUNTER → 2017-10-26 | Outpatient (CLI) | payer OTHER | END | disposition home or self-care (01) | LOC: C.LAB 08:54 | PROVIDERS: ATTEND Obstetrics & Gynecology | DX: Z31.41 Encounter for fertility testing (principal) ==